=== PATIENT | male | born 1955 | race Caucasian/White ===

== ENCOUNTER 2025-02-20 15:16 | Emergency (ER) | payer MEDICARE, SELFPAY ==
[2025-02-20 15:23] VITALS: BP 195/100; PULSE 75; RESP 17; TEMP 36.4; O2SAT 97; BMI 23.4
--- NOTE | 2025-02-20 15:34 | ED.WEAKNESS ---
HPI - Weakness General Chief complaint: Weakness Stated complaint: light headed, chest discomfort, since yesterday Time Seen by Provider: 02/20/25 15:34 Source: patient Mode of arrival: Ambulatory History of Present Illness HPI Narrative: This is a 69-year-old male presenting to the emergency department due to sensation of lightheadedness and ?just not feeling right? as well as some left-sided neck pain as well as some left shoulder pain although he is unsure if this is chronic as he reports he has chronic left shoulder pain. Denies any distinct chest pain, shortness of breath, fevers, abdominal pain, URI symptoms, or any other concerning signs or symptoms. Reports history of hypothyroidism. Has been taking meds as prescribed. Related Data Previous Rx's ?Medication ?Instructions ?Recorded lisinopril 5 mg tablet 5 mg PO DAILY #30 tabs 02/20/25 Allergies Allergy/AdvReac Type Severity Reaction Status Date / Time No Known Drug Allergies Allergy Verified 02/20/25 15:24 Review of Systems Review of Systems Narrative: GENERAL: Denies chills, fatigue, malaise, fever, sweats. HEENT: Denies sinus pain, ear pain, sore throat, difficulty swallowing, dizziness. RESPIRATORY: Denies dyspnea, cough, wheezing, hemoptysis, sputum. CARDIOVASCULAR: Denies chest pain, palpitations, orthopnea, edema, GASTROINTESTINAL: Denies nausea, vomiting, abdominal pain, diarrhea, constipation, melena. : Denies dysuria, frequency, incontinence, hematuria, urinary retention. MUSCULOSKELETAL: Reports left-sided neck pain, left shoulder pain, otherwise denies weakness, joint pain, or bony pain SKIN: Denies rash, skin lesions, or other NEUROLOGIC: Reports lightheadedness Denies weakness, headache, numbness, change in speech, confusion, seizures, incoordination. PSYCHIATRIC: No concerning psychosocial issues. 12 point review of systems is negative except for those stated above Patient History Social History Smoking Status: Never smoker Smoking Status: Never smoker Exam Narrative Exam Narrative: GENERAL: Well-developed patient, in mild distress. HEAD: Atraumatic. Normocephalic. EYES: Pupils equal round and reactive. Extraocular motions intact. No scleral icterus. No injection or drainage. ENT: Nose without bleeding, purulent drainage. Throat without erythema, tonsillar hypertrophy or exudate. Airway patent. NECK: Trachea midline. Non tender EXTREMITIES: No edema or joint tenderness. NEURO: AOx3. SKIN: No rash or erythema of visible areas CARDIOVASCULAR: Regular rate and rhythm without murmurs, gallops, or rubs. RESPIRATORY: Clear to auscultation. Breath sounds equal bilaterally. No wheezes, rales, or rhonchi. GASTROINTESTINAL: Abdomen soft, non-tender, nondistended. BACK: Nontender without deformity or crepitance. No flank tenderness. Initial Vital Signs Initial Vital Signs: Vital Signs Temperature 97.5 F L 02/20/25 15:23 Pulse Rate 75 02/20/25 15:23 Respiratory Rate 17 02/20/25 15:23 Blood Pressure 195/100 H 02/20/25 15:23 Pulse Oximetry 97 02/20/25 15:23 Oxygen Delivery Method Room Air 02/20/25 15:23 Course Orders Ordered: ED Orders 02/20/25 15:44 EKG-12 Lead Stat 02/20/25 15:45 XR chest 2V Stat 02/20/25 16:13 CT angio head and neck Stat 02/20/25 16:24 CT head/brain wo con Stat 02/20/25 16:50 Complete Blood Count AUTO DIFF Stat Comprehensive Metabolic Panel Stat Troponin I Stat Vital Signs Vital signs: Vital Signs - 8 hr 02/20/25 15:23 02/20/25 18:28 Temperature 97.5 F L Pulse Rate 75 78 Respiratory Rate 17 17 Blood Pressure 195/100 H 158/92 H Pulse Oximetry 97 98 Oxygen Delivery Method Room Air Room Air MDM - Weakness Lab Data 02/20/25 16:50 02/20/25 16:50 Labs: Lab Results 02/20/25 Range/Units 16:50 WBC 5.0 (4.5-11.0) X10^3/uL RBC 5.44 (4.5-5.9) X10^6/uL Hgb 15.6 (13.5-17.5) g/dL Hct 46.0 (41-53) % MCV 84.6 (80-100) fL MCH 28.6 (26-34) PG MCHC 33.9 (30-36) % RDW 13.9 (11.6-14.8) % Plt Count 256 (150-400) X10^3/uL Neut % (Auto) 78.6 H (50-75) % Lymph % (Auto) 10.4 L (25-40) % [place] % (Auto) 10.0 (3-14) % Eos % (Auto) 0.4 L (2-4) % Baso % (Auto) 0.6 (0-2) % Neut # (Auto) 4000 (8125-0848) /uL Lymph # (Auto) 500 L (1075-5060) /uL [place] # (Auto) 500 (0-900) /uL Eos # (Auto) 0 (0-450) /uL Baso # (Auto) 0 (0-100) /uL Sodium 139 (137-145) mmol/L Potassium 4.3 (3.4-5.1) mmol/L Chloride 103 (98-107) mmol/L Carbon Dioxide 27 (22-32) mmol/L BUN 18 (9-20) mg/dL Creatinine 0.93 (0.66-1.25) mg/dL Estimated GFR > 60 (>60) mL/min BUN/Creatinine Ratio 19.4 (6-22) Glucose 104 H (70-99) mg/dL Calcium 9.4 (8.4-10.2) mg/dL Total Bilirubin 0.5 (0.2-1.3) mg/dL AST 26 (17-59) IU/L ALT 20 (<50) IU/L Alkaline Phosphatase 55 (38-126) U/L Troponin I < 0.012 (0.01-0.034) ng/mL Total Protein 7.6 (6.3-8.2) g/dL Albumin 4.8 (3.5-5.0) g/dL Globulin 2.8 (1.7-4.1) g/dL Albumin/Globulin Ratio 1.7 (1.0-2.8) Imaging Data Chest x-ray: Radiologist Impression: [address] [address] XRay Report Signed Patient: Billy Reilly MR#: [id number] : 1955 Acct:[id number] Age/Sex: 69 / M Date of Service: 02/20/25 Loc: ED Accession Number: [id number] Procedure: XR chest 2V Ordering Provider: Dajuan Gomez PA-C PROCEDURE: XR CHEST 2V INDICATIONS: CP TECHNIQUE: 2 views of the chest were acquired. COMPARISON: None. FINDINGS: Surgical changes and devices: None. Lungs and pleura: Lungs are clear. No pleural effusions or pneumothorax. Mediastinum: Mediastinal contours are normal. Heart size is normal. Bones and chest wall: No suspicious bony abnormalities. Soft tissues appear unremarkable. IMPRESSION: No acute cardiopulmonary abnormality is seen. Dictated by: Harvey Garza M.D. on 02/20/2025 at 16:53 Approved by: Harvey Garza M.D. on 02/20/2025 at 16:54 CTA - brain/neck: Radiologist Impression: [place] [address] CT Scan Report Signed Patient: Billy Reilly MR#: [id number] : 1955 Acct:[id number] Age/Sex: 69 / M Date of Service: 02/20/25 Loc: ED Accession Number: [id number] Procedure: CT angio head and neck Ordering Provider: Dajuan Gomez PA-C PROCEDURE: CT ANGIO HEAD AND NECK INDICATIONS: L neck pain, HTN TECHNIQUE: After the administration of intravenous contrast, 1 mm thick sections acquired from the aortic arch through the [place]. 3-dimensional joozijf-axzdcqmgs-yzuixlpxbj (MIP) and/or volume rendering reformats were acquired of the central intracranial vasculature and neck separately. For radiation dose reduction, the following was used: automated exposure control, adjustment of mA and/or kV according to patient size. COMPARISON: None. FINDINGS: Image quality: Diagnostic. Cerebral CT Angiogram: Internal carotid arteries: No acute findings. Intracranial ICA are patent with no significant stenosis. No occlusion. No aneurysm. Anterior cerebral arteries: Unremarkable. No significant stenosis. No occlusion. No aneurysm. Middle cerebral arteries: Unremarkable. No significant stenosis. No occlusion. No aneurysm. Posterior cerebral arteries: Unremarkable. No significant stenosis. No occlusion. No aneurysm. Basilar artery: Unremarkable. No significant stenosis. No occlusion. No aneurysm. Vertebral arteries: Unremarkable as visualized. Dural venous sinuses: Unremarkable given phase of enhancement. Other: Arterial phase appearance of the brain parenchyma is unremarkable. Neck CT Angiogram: Internal carotid arteries: Unremarkable. No significant stenosis. No dissection or occlusion. Common carotid arteries: Unremarkable. No significant stenosis. No dissection or occlusion. External carotid arteries: Unremarkable. No occlusion. Vertebral arteries: Unremarkable. No significant stenosis. No dissection or occlusion. Aortic Arch and Mediastinum: Partially visualized aortic arch unremarkable without evidence of aneurysm. Origins of the great vessels unremarkable. Other: Arterial phase soft tissues of the neck and chest are unremarkable. IMPRESSION: No significant intracranial arterial abnormality is seen. No significant abnormality is seen within the arteries of the neck. Any quantitative measurements of stenosis were performed using NASCET criteria. Dictated by: Harvey Garza M.D. on 02/20/2025 at 16:58 Approved by: Harvey Garza M.D. on 02/20/2025 at 17:02 CT scan - head: Radiologist Impression: [place] [address] CT Scan Report Signed Patient: Billy Reilly MR#: [id number] : 1955 Acct:[id number] Age/Sex: 69 / M Date of Service: 02/20/25 Loc: ED Accession Number: [id number] Procedure: CT head/brain wo con Ordering Provider: Dajuan Gomez PA-C PROCEDURE: CT HEAD/BRAIN WO CON INDICATIONS: HYPERTENSION LIGHTHEADED AND LEFT NECK PAIN TECHNIQUE: Noncontrast 4.5 mm thick angled axial sections acquired from the foramen magnum to the vertex, with coronal and sagittal reformats. For radiation dose reduction, the following was used: automated exposure control, adjustment of mA and/or kV according to patient size. COMPARISON: None. FINDINGS: Image quality: Diagnostic. CSF spaces: Basal cisterns are patent. No extra-axial fluid collections. The ventricles are symmetric in size and shape. Brain: No intracranial bleeds or mass effect. There is cerebral volume loss, with resultant ventricular and sulcal prominence. There are periventricular and deep white matter chronic small vessel ischemic changes. There is intracranial internal carotid artery atherosclerosis. Skull and face: Calvarium and visualized facial bones appear intact, without suspicious lesions. Sinuses: Visualized sinuses and mastoids are clear. IMPRESSION: No acute intracranial pathology. Dictated by: Harvey Garza M.D. on 02/20/2025 at 16:55 Approved by: Harvey Garza M.D. on 02/20/2025 at 16:56 - MDM Narrative Medical decision making narrative: ED course: 69-year-old male presents to the emergency department due to vague symptoms of feeling unwell as well as some left side neck pain. The blood pressure was noted to be elevated with a blood pressure of 195/100 that eventually improve to 158/92 during encounter. Cardiac workup ordered which was negative. Patient is describing any distinct chest pain. Suspect the symptoms were due to his elevated blood pressure. He has been taking blood pressure readings at home which has been elevated as well. We will start on a very low dose of lisinopril until he is able to establish with a primary care provider here in [place]. CTA head and neck ordered due to the neck pain which was unremarkable. CC: Feeling of unwellness Complicating co-morbidities: None Data collected from: Previous notes Medical records reviewed: Patient has not been to this emergency department in the past. Differential considered, but not limited to: Hypertensive emergency, hypertensive urgency, ACS Exam documented above, pertinent findings include: Reassuring neuro exam, no abnormalities Lab Test results independently reviewed as above. Pertinent findings: Lab work unremarkable Imaging studies independently reviewed: CTA head and neck unremarkable Scores Used: None MIPS Elements: None Consultations: None Treatments: None Re-evaluations: BP improved without treatment Discussion: Discussed plan with the patient was comfortable with the plan Diagnosis: Elevated blood pressure Disposition: see below, along with detailed discharge instructions that have been reviewed with patient as well as indications for ED re-evaluation and additional outpatient follow up Discharge Plan Departure Patient Disposition: Home Clinical Impression: Elevated blood pressure reading Activity Restrictions/Additional Instructions: Thank you for coming to the [facility] Emergency Department today. As we discussed suspect the symptoms you are experiencing was due to elevated blood pressure readings. Your workup today was reassuring. The CT of the head and neck showed no evidence of any kind of abnormality your blood vessels. EKG and lab work showed no evidence of a heart attack. This maybe due to your ability blood pressure. We have started you on a very low dose of lisinopril until able to follow up with the primary care provider . I sent the medication to [facility] and [place]. Please return to the emergency department if you develop any significant chest pain, shortness of breath, slurred speech, weakness, facial drooping, or any other concerning signs or symptoms. I hope you feel better soon. Please follow up with your primary care provider within a week if your symptoms continue. If you do not have a primary care provider please contact the [facility] Resource line at [phone]. They will ask some questions about your medical history and help you get set up with a provider in the community. Prescriptions: New lisinopril 5 mg tablet 5 mg PO DAILY Qty: 30 0RF Stand Alone Forms: Patient Portal/API
--- NOTE | 2025-02-20 15:44 | EKG_ITS ---
[address] [address] Test Date: 2025-02-20 Pat Name: Billy Reilly Department: [facility] Room: Gender: Male Mobile Application Development Lead: BISHNU : 1955 Requested By: Order Number: [id number] Reading MD: Benjamin Ortiz MD Measurements Intervals [place] Rate: 67 P: 77 MS: 158 QRS: 35 QRSD: 88 T: 55 QT: 378 QTc: 399 Interpretive Statements Normal sinus rhythm Electronically Signed On 02-21-2025 7:38:43 PST by Benjamin Ortiz MD
--- NOTE | 2025-02-20 15:45 | DI.RAD.S_ITS ---
PROCEDURE: XR CHEST 2V INDICATIONS: CP TECHNIQUE: 2 views of the chest were acquired. COMPARISON: None. FINDINGS: Surgical changes and devices: None. Lungs and pleura: Lungs are clear. No pleural effusions or pneumothorax. Mediastinum: Mediastinal contours are normal. Heart size is normal. Bones and chest wall: No suspicious bony abnormalities. Soft tissues appear unremarkable. IMPRESSION: No acute cardiopulmonary abnormality is seen. Dictated by: Harvey Garza M.D. on 02/20/2025 at 16:53 Approved by: Harvey Garza M.D. on 02/20/2025 at 16:54
--- NOTE | 2025-02-20 16:13 | DI.CT.S_ITS ---
PROCEDURE: CT ANGIO HEAD AND NECK INDICATIONS: L neck pain, HTN TECHNIQUE: After the administration of intravenous contrast, 1 mm thick sections acquired from the aortic arch through the [place]. 3-dimensional etzvaiw-jzacqxtxl-nqdesquqge (MIP) and/or volume rendering reformats were acquired of the central intracranial vasculature and neck separately. For radiation dose reduction, the following was used: automated exposure control, adjustment of mA and/or kV according to patient size. COMPARISON: None. FINDINGS: Image quality: Diagnostic. Cerebral CT Angiogram: Internal carotid arteries: No acute findings. Intracranial ICA are patent with no significant stenosis. No occlusion. No aneurysm. Anterior cerebral arteries: Unremarkable. No significant stenosis. No occlusion. No aneurysm. Middle cerebral arteries: Unremarkable. No significant stenosis. No occlusion. No aneurysm. Posterior cerebral arteries: Unremarkable. No significant stenosis. No occlusion. No aneurysm. Basilar artery: Unremarkable. No significant stenosis. No occlusion. No aneurysm. Vertebral arteries: Unremarkable as visualized. Dural venous sinuses: Unremarkable given phase of enhancement. Other: Arterial phase appearance of the brain parenchyma is unremarkable. Neck CT Angiogram: Internal carotid arteries: Unremarkable. No significant stenosis. No dissection or occlusion. Common carotid arteries: Unremarkable. No significant stenosis. No dissection or occlusion. External carotid arteries: Unremarkable. No occlusion. Vertebral arteries: Unremarkable. No significant stenosis. No dissection or occlusion. Aortic Arch and Mediastinum: Partially visualized aortic arch unremarkable without evidence of aneurysm. Origins of the great vessels unremarkable. Other: Arterial phase soft tissues of the neck and chest are unremarkable. IMPRESSION: No significant intracranial arterial abnormality is seen. No significant abnormality is seen within the arteries of the neck. Any quantitative measurements of stenosis were performed using NASCET criteria. Dictated by: Harvey Garza M.D. on 02/20/2025 at 16:58 Approved by: Harvey Garza M.D. on 02/20/2025 at 17:02
--- NOTE | 2025-02-20 16:24 | DI.CT.S_ITS ---
PROCEDURE: CT HEAD/BRAIN WO CON INDICATIONS: HYPERTENSION LIGHTHEADED AND LEFT NECK PAIN TECHNIQUE: Noncontrast 4.5 mm thick angled axial sections acquired from the foramen magnum to the vertex, with coronal and sagittal reformats. For radiation dose reduction, the following was used: automated exposure control, adjustment of mA and/or kV according to patient size. COMPARISON: None. FINDINGS: Image quality: Diagnostic. CSF spaces: Basal cisterns are patent. No extra-axial fluid collections. The ventricles are symmetric in size and shape. Brain: No intracranial bleeds or mass effect. There is cerebral volume loss, with resultant ventricular and sulcal prominence. There are periventricular and deep white matter chronic small vessel ischemic changes. There is intracranial internal carotid artery atherosclerosis. Skull and face: Calvarium and visualized facial bones appear intact, without suspicious lesions. Sinuses: Visualized sinuses and mastoids are clear. IMPRESSION: No acute intracranial pathology. Dictated by: Harvey Garza M.D. on 02/20/2025 at 16:55 Approved by: Harvey Garza M.D. on 02/20/2025 at 16:56
[2025-02-20 16:39] LABS: Add Manual Diff / Slide Review NO; Hematocrit 46.0 % (41-53); Hemoglobin 15.6 g/dL (13.5-17.5); Lymphocytes Absolute Auto 500 /uL (1100-4500); Mean Corpuscular HGB Conc 33.9 % (30-36); Mean Corpuscular Hemoglobin 28.6 PG (26-34); Mean Corpuscular Volume 84.6 fL (80-100); Platelet Count 256 X10^3/uL (150-400)
[2025-02-20 16:47] LABS: Alanine Aminotransferase 20 IU/L (<50); Albumin 4.8 g/dL (3.5-5.0); Albumin Globulin Ratio 1.7 (1.0-2.8); Alkaline Phosphatase 55 U/L (38-126); Blood Urea Nitrogen 18 mg/dL (9-20); Calcium 9.4 mg/dL (8.4-10.2); Carbon Dioxide 27 mmol/L (22-32); Chloride 103 mmol/L (98-107); Estimated Glomerular Filt Rate > 60 mL/min (>60); Globulin 2.8 g/dL (1.7-4.1); Glucose 104 mg/dL (70-99); HEMOLYSIS 19 (0-50); Potassium 4.3 mmol/L (3.4-5.1); Sodium 139 mmol/L (137-145); Total Protein 7.6 g/dL (6.3-8.2)
[2025-02-20 16:59] LABS: Troponin I < 0.012 ng/mL (0.01-0.034)
[2025-02-20 18:28] VITALS: BP 158/92; PULSE 78; RESP 17; O2SAT 98
== END 2025-02-20 18:46 | disposition home or self-care (01) ==
PROVIDERS: Emergency Provider Physician Assistant Medical
DX: R03.0 Elevated blood-pressure reading, without diagnosis of hypertension (principal); R07.9 Chest pain, unspecified; M25.512 Pain in left shoulder
CPT/HCPCS: 70450; 70496; 70498; 71046; 80053; 84484; 85025; 93005; 93010; 99281; 99284; Q9967